=== PATIENT | male | born 1980 | race Caucasian/White ===

== ENCOUNTER 2021-06-10 09:26 | Outpatient (REF) | payer SELFPAY ==
[2021-06-11 15:29] LABS: COVID-19 RT-PCR UVMMC Result Negative (Negative)
== END 2021-06-10 09:27 | disposition home or self-care (01) ==
LOC: NCHCN 09:26
PROVIDERS: Referring Provider Nurse Practitioner Family; Visit Provider Nurse Practitioner Family
DX: Z20.822 Contact with and (suspected) exposure to COVID-19 (principal)
CPT/HCPCS: U0003

== ENCOUNTER 2021-10-06 19:31 | Outpatient (REF) | payer SELFPAY ==
[2021-10-08 16:29] LABS: COVID-19 RT-PCR UVMMC Result Negative (Negative)
== END 2021-10-06 19:32 | disposition home or self-care (01) ==
LOC: LBN 19:31
PROVIDERS: Visit Provider Physician Assistant Medical
DX: Z20.822 Contact with and (suspected) exposure to COVID-19 (principal)
CPT/HCPCS: U0003